=== PATIENT | male | born 2005 | race Caucasian/White ===

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

== ENCOUNTER → 2023-03-04 | Emergency (ER) | payer BC, SELFPAY ==
--- OUTSIDE RECORDS SUMMARY | 2023-03-04 16:58 | XMS REPORT | Continuity of Care Document ---
Author Name Unknown Address [address] [facility] [address] [place] [address] [facility] thconnect Address [address] [facility] [address] [place] [address] Care Team Providers Care Administrative Fellow Name Role Phone Unavailable Unavailable Unavailable Encounters Start Date/Time End Date/Time Encounter Type Admission Type Attending Clinicians Care Facility Care Department Encounter ID Source 2022-07-06 16:37:55 Outpatient [facility] [id number] [facility]
--- NOTE | 2023-03-04 18:38 | RAD REPORT ---
EXAM DESCRIPTION: CT - [id number] - 03/04/2023 5:58 pm CLINICAL HISTORY: TRAUMA COMPARISON: No comparisons TECHNIQUE: Axial thin cut noncontrast CT images of the head were obtained. Axial thin cut noncontrast CT images of the cervical spine were obtained. Multiplanar reformatted images were generated and reviewed. All CT scans are performed using dose optimization technique as appropriate and may include automated exposure control or mA/KV adjustment according to patient size. FINDINGS: CT HEAD WITHOUT CONTRAST: No acute hemorrhage, hydrocephalus or extra-axial collection is identified.No areas of brain edema or midline shift. The paranasal sinuses and mastoids are clear.The calvarium is intact. CT CERVICAL SPINE WITHOUT CONTRAST: No fracture or subluxation.No prevertebral soft tissues swelling is identified. IMPRESSION: No acute traumatic intracranial or cervical spine findings.
[2023-03-04 18:50] LABS: Absolute Lymphocytes (CBC) 3.1 K/uL (0.7-4.9); Hematocrit 39.7 % (39.6-49.0); Lymphocytes % 46.6 % (15.3-44.8); MCV 85.8 fL (80-100); MPV 6.8 fL (7.6-11.3); Platelets 217 thou/uL (152-406); RBC Red Blood Cell Count 4.63 M/uL (4.33-5.43)
--- NOTE | 2023-03-04 18:59 | RAD REPORT ---
EXAM DESCRIPTION: RADChest Single View03/04/2023 6:44 pm CLINICAL HISTORY: CHEST PAIN COMPARISON: CHEST PA AND LAT 2 VIEW dated 02/27/2012; CHEST PA AND LAT 2 VIEW dated 04/02/2009; Head C Spine Mpr Wo Con dated 03/04/2023 TECHNIQUE: Portable AP view of the chest. FINDINGS: The lungs are clear. No pneumothorax or effusion. The cardiomediastinal contours are unre markable. IMPRESSION: No acute cardiopulmonary process.
[2023-03-04 19:11] LABS: Bilirubin Direct 0.2 mg/dL (0-0.2); Bilirubin Indirect, Calculated 0.6 mg/dL (0.2-0.8); Bilirubin Total 0.8 mg/dL (0.2-1.0); Magnesium 1.8 mg/dL (1.6-2.4); Potassium 3.1 mEq/L (3.5-5.1); Protein, Total 7.9 g/dL (6.4-8.2); Thyroid Stimulating Hormone 1.89 uIU/mL (0.358-3.740); Troponin High Sensitivity 6.9 pg/mL (<58.9)
--- NOTE | 2023-03-04 19:29 | EDPHYS ---
Physician Documentation [facility] Name: Cipriano Bolton Age: 18 yrs Sex: Male : 2005 Arrival Date: 03/04/2023 Time: 16:54 Bed 3 Private MD: ED Physician Aidan Gonzalez HPI: 03/04 19:33 This 18 yrs old Male presents to ER via Wheelchair with complaints of Chest Pain, Head rt Injury Without LOC-Adult, Headache. 19:33 Patient presents to the ED with intermittent chest pain for several months, it worsened rt last night, causing him to fall, hitting the back of his head. He reports ongoing intermittent chest pain today. It is sharp in nature, at the lower chest and worse when he moves or takes a deep breath. Denies shortness of breath. Denies other acute complaints, symptoms are moderate severity, no other aggravating or alleviating factors.. Historical: - Allergies: 17:06 Peanut; db - Home Meds: 17:06 Prozac Oral [Active]; db - PMHx: 17:06 ADD/ADHD; Asthma; db - Immunization history:: Adult Immunizations unknown. - Social history:: Smoking status: Patient denies any tobacco usage or history of. - Family history:: not pertinent. ROS: 19:33 Constitutional: Negative for fever, chills, and weight loss, Respiratory: Negative for rt shortness of breath, cough, wheezing, and pleuritic chest pain, Abdomen/GI: Negative for abdominal pain, nausea, vomiting, diarrhea, and constipation, MS/Extremity: Negative for injury and deformity, Skin: Negative for injury, rash, and discoloration, Psych: Negative for depression, anxiety, suicide ideation, homicidal ideation, and hallucinations, 19:33 Cardiovascular: Positive for chest pain, Negative for edema, 19:33 Neuro: Positive for headache, Negative for syncope, Exam: 19:33 Constitutional: This is a well developed, well nourished patient who is awake, alert, rt and in no acute distress. Chest/axilla: Normal chest wall appearance and motion. Nontender with no deformity. No lesions are appreciated. Cardiovascular: Regular rate and rhythm with a normal S1 and S2. No gallops, murmurs, or rubs. Normal PMI, no JVD. No pulse deficits. Respiratory: Lungs have equal breath sounds bilaterally, clear to auscultation and percussion. No rales, rhonchi or wheezes noted. No increased work of breathing, no retractions or nasal flaring. Abdomen/GI: Soft, non-tender, with normal bowel sounds. No distension or tympany. No guarding or rebound. No evidence of tenderness throughout. Skin: Warm, dry with normal turgor. Normal color with no rashes, no lesions, and no evidence of cellulitis. MS/ Extremity: Pulses equal, no cyanosis. Neurovascular intact. Full, normal range of motion. Neuro: Awake and alert, GCS 15, oriented to person, place, time, and situation. Cranial nerves II-XII grossly intact. Motor strength 5/5 in all extremities. Sensory grossly intact. Cerebellar exam normal. Normal gait. Psych: Awake, alert, with orientation to person, place and time. Behavior, mood, and affect are within normal limits. 19:33 ECG was reviewed by the Attending Physician. Vital Signs: 17:05 BP 125 / 87; Pulse 80; Resp 18; Temp 98; Pulse Ox 98% ; Weight 48.99 kg; Height 6 ft. 4 db in. ; 19:35 BP 133 / 84; Pulse 58; Resp 17; Pulse Ox 100% ; Pain 0/10; iw 17:05 Body Mass Index 13.15 (48.99 kg, 193.04 cm) db 19:35 Pain Scale: Adult iw MDM: 16:59 Patient medically screened. rt 19:33 Differential diagnosis: ACS, pneumonia, pneumothorax, anxiety. HEART Score: History: rt Slightly Suspicious (0), ECG: Normal (0), Age: < or = 45 years (0), Risk Factors: No Risk Factors Known (0), Troponin: < or = 1 x Normal Limit (0), Total Score = 0. Data reviewed: vital signs, nurses notes, lab test result(s), EKG, radiologic studies. I considered the following discharge prescriptions or medication management in the emergency department Medications were administered in the Emergency Department. See MAR. Independent interpretation of the following test(s) in the Emergency Department CT Scan: My interpretation is No hemorrhage seen on interpretation of CT scan images. Test considered but Not performed: CT: PE RC negative, low suspicion for PE, CT angiogram not indicated. Counseling: I had a detailed discussion with the patient and/or guardian regarding the historical points, exam findings, and any diagnostic results supporting the discharge/admit diagnosis, lab results, radiology results, the need for outpatient follow up, to return to the emergency department if symptoms worsen or persist or if there are any questions or concerns that arise at home. Response to treatment: the patient's symptoms have resolved after treatment. 03/04 17:11 Order name: Basic Metabolic Panel; Complete Time: 19:25 rt 03/04 17:11 Order name: CBC with Diff; Complete Time: 19:45 rt 03/04 17:11 Order name: LFT's; Complete Time: 19:25 rt 03/04 17:11 Order name: Magnesium; Complete Time: 19:25 rt 03/04 17:11 Order name: NT PRO-BNP; Complete Time: 19:25 rt 03/04 17:11 Order name: Troponin HS; Complete Time: 19:25 rt 03/04 17:11 Order name: CPK; Complete Time: 19:25 rt 03/04 17:11 Order name: TSH; Complete Time: 19:25 rt 03/04 19:00 Order name: Manual Differential; Complete Time: 19:45 EDMS 03/04 17:11 Order name: XRAY Chest (1 view); Complete Time: 19:03 rt 03/04 17:11 Order name: CT Head C Spine; Complete Time: 19:03 rt 03/04 17:11 Order name: EKG; Complete Time: 17:12 rt 03/04 17:11 Order name: Cardiac monitoring rt 03/04 17:11 Order name: EKG - Nurse/Tech rt 03/04 17:11 Order name: IV Saline Lock; Complete Time: 18:32 rt 03/04 17:11 Order name: Labs collected and sent; Complete Time: 18:32 rt 03/04 17:11 Order name: O2 Per Protocol; Complete Time: 18:32 rt 03/04 17:11 Order name: O2 Sat Monitoring; Complete Time: 18:32 rt EC:33 Rate is 47 beats/min. Rhythm is regular, Sinus bradycardia with Benign early rt repolarization is present. QRS [place] is Normal. MO interval is normal. QRS interval is normal. QT interval is normal. No Q waves. Administered Medications: No medications were administered Disposition Summary: 03/04/23 19:29 Discharge Ordered Notes: Location: Home rt Problem: new rt Symptoms: have improved rt Condition: Stable rt Diagnosis - Chest pain, unspecified rt - Unspecified injury of head, initial encounter rt - Hypokalemia rt Followup: rt - With: Carlos Bhatti MD - When: 7 - 10 days - Reason: Discharge Instructions: - Discharge Summary Sheet rt - Nonspecific Chest Pain, Adult rt - Head Injury, Adult rt - Hypokalemia rt Forms: - Medication Reconciliation Form rt - Thank You Letter rt - Antibiotic Education rt - Prescription Opioid Use rt - Patient Portal Instructions rt - Leadership Thank You Letter rt Prescriptions: - Potassium Chloride 20 meq Oral Packet - take 1 packet ORAL route once daily 1 packet in 6 (six) ounces of water or rt juice; Take after meal; 5 packet; Refills: 0, Product Selection Permitted Signatures: Dispatcher [employer] Jahaira Isbell, RN RN Aidan Mann MD MD rt
--- NOTE | 2023-03-04 19:29 | ER ---
Nurse's Notes [facility] Name: Cipriano Bolton Age: 18 yrs Sex: Male : 2005 Arrival Date: 03/04/2023 Time: 16:54 Bed 3 Private MD: Diagnosis: Chest pain, unspecified;Unspecified injury of head, initial encounter;Hypokalemia Presentation: 03/04 17:05 Chief complaint: Patient states: CHEST PAIN STARTED AFTER FEELING ANXIOUS. PT db UNCONTROLLABLY SHAKING. STATES LEGS ARE TOO TENSE. STATES HIT HEAD YESTERDAY ON A DOOR. Coronavirus screen: Client denies travel out of the [place] in the last 14 days. At this time, the client does not indicate any symptoms associated with coronavirus-19. Ebola Screen: Patient negative for fever greater than or equal to 101.5 degrees Fahrenheit, and additional compatible Ebola Virus Disease symptoms Patient denies exposure to infectious person. Patient denies travel to an Ebola-affected area in the 21 days before illness onset. No symptoms or risks identified at this time. Initial Sepsis Screen: Does the patient meet any 2 criteria? HR > 90 bpm. Does the patient have a suspected source of infection? No. Patient's initial sepsis screen is negative. Risk Assessment: Do you want to hurt yourself or someone else? Patient reports no desire to harm self or others. Onset of symptoms was March 04, 2023. 17:05 Method Of Arrival: Wheelchair db 17:05 Acuity: ELIDA 2 db Triage Assessment: 17:06 General: Appears in no apparent distress. comfortable, Behavior is calm, cooperative. db Pain: Complains of pain in chest. Cardiovascular: Chest pain. Respiratory: Airway is patent Respiratory effort is even, unlabored, Respiratory pattern is regular, symmetrical. Historical: - Allergies: 17:06 Peanut; db - Home Meds: 17:06 Prozac Oral [Active]; db - PMHx: 17:06 ADD/ADHD; Asthma; db - Immunization history:: Adult Immunizations unknown. - Social history:: Smoking status: Patient denies any tobacco usage or history of. - Family history:: not pertinent. Screenin:32 [facility] ED Fall Risk Assessment (Adult) Score/Fall Risk Level 0 - 2 = Low Risk. Abuse iw screen: Denies threats or abuse. Denies injuries from another. Nutritional screening: No deficits noted. Tuberculosis screening: No symptoms or risk factors identified. Assessment: 18:31 General: Appears in no apparent distress. Behavior is calm, cooperative. Pain: iw Complains of pain in head and chest Pain began X 1 week. Neuro: Level of Consciousness is awake, alert, obeys commands, Oriented to person, place, time, situation, Recreation Teacher are Moves all extremities. Full function. Cardiovascular: Reports chest pain, Capillary refill < 3 seconds in bilateral fingers Patient's skin is warm and dry. Respiratory: Respiratory effort is even, unlabored, Respiratory pattern is regular, symmetrical. GI: Abdomen is flat, non-distended. Vital Signs: 17:05 BP 125 / 87; Pulse 80; Resp 18; Temp 98; Pulse Ox 98% ; Weight 48.99 kg; Height 6 ft. 4 db in. ; 19:35 BP 133 / 84; Pulse 58; Resp 17; Pulse Ox 100% ; Pain 0/10; iw 17:05 Body Mass Index 13.15 (48.99 kg, 193.04 cm) db 19:35 Pain Scale: Adult iw ED Course: 16:57 Patient arrived in ED. im 16:58 Aidan Gonzalez MD is Attending Physician. rt 17:06 Triage completed. db 17:06 Arm band placed on Patient placed in an exam room. db 18:00 CT Head C Spine In Process Unspecified. EDMS 18:31 Initial lab(s) drawn, by me, sent to lab. Inserted saline lock: 20 gauge in right iw antecubital area, using aseptic technique. Blood collected. Patient maintains SpO2 saturation greater than 95% on room air. 18:46 XRAY Chest (1 view) In Process Unspecified. EDMS 19:28 Carlos Bhatti MD is Referral Physician. rt 19:35 Patient has correct armband on for positive identification. Bed in low position. Call iw light in reach. Adult w/ patient. Client placed on continuous cardiac and pulse oximetry monitoring. NIBP monitoring applied. playground monitor on. 20:00 No provider procedures requiring assistance completed. IV discontinued, intact, iw bleeding controlled, No redness/swelling at site. Pressure dressing applied. Administered Medications: No medications were administered Medication: 18:32 VIS not applicable for this client. iw Outcome: 19:29 Discharge ordered by . rt 20:00 Discharged to home ambulatory, with family, iw 20:00 Condition: improved 20:00 Discharge instructions given to patient, family, Instructed on discharge instructions, medication usage, [employer] Demonstrated understanding of instructions, medications, 20:08 Patient left the ED. iw Signatures: Dispatcher [employer] Yocasta Guerra RN RN iw Benton, Danielle, RN RN db [place], Ryan, MD MD rt Alise Evans
[2023-03-04 19:41] LABS: Blood Morphology Comment NOT SEEN (NOT SEEN); Platelet Estimate ADEQ
[2023-03-04 21:02] VITALS: BP 133/84; TEMP 98; O2SAT 100
== END ==
LOC: ER 16:54
DX: R07.9 Chest pain, unspecified (principal); S09.90XA Unspecified injury of head, initial encounter; E87.6 Hypokalemia
CPT/HCPCS: 36415; 70450; 71045; 72125; 80048; 80076; 82550; 83735; 83880; 84443; 84484; 85025; 93005; 99285